=== PATIENT | male | born 1945 | race Caucasian/White ===

== ENCOUNTER 2019-03-01 16:23 | Inpatient (IN) ==
[2019-03-01] MEDS ORDERED: SODIUM CHLORIDE 0.9% 1000ML 1,000 ML IV SCH (16:45)
[2019-03-01 16:58] LABS: Basophils # (auto) 0.01 K/uL (0-0.2); Basophils % (auto) 0.2 %; Eosinophils # (auto) 0.17 K/uL (0-0.5); Eosinophils % (auto) 2.9 %; Hematocrit (blood only) 39.8 % (42-52); Hemoglobin 13.5 g/dL (14.0-18.0); Immature Granulocytes # (auto) 0.01 K/uL (0.00-0.02); Immature Granulocytes % (auto) 0.2 %; Lymphocytes # (auto) 2.13 K/uL (1.2-3.4); Lymphocytes % (auto) 36.3 %; Mean Corpuscular Hgb Conc 33.9 g/dL (32-36); Mean Corpuscular Volume 87.1 fL (80-100); Mean Platelet Volume 10.4 fL (7.4-10.4); Monocytes # (auto) 0.75 K/uL (0.11-0.59); Monocytes % (auto) 12.8 %; Neutrophils # (auto) 2.79 K/uL (1.4-6.5); Neutrophils % (auto) 47.6 %; Platelet Count 143 K/uL (130-400); RDW Coefficient of Variation 14.1 % (11.5-14.5); RDW Standard Deviation 44.4 fL (36.4-46.3); Red Blood Count 4.57 M/uL (4.7-6.1); White Blood Count 5.86 K/uL (4.8-10.8)
--- NOTE | 2019-03-01 17:04 | XRay Report ---
XR chest 1V portable CLINICAL HISTORY: dizzy COMPARISON STUDY: No previous studies for comparison. FINDINGS: The heart is the upper limits of normal in size. There are by basilar interstitial opacitie s, atelectatic versus infectious/inflammatory. There is no lobar consolidation. There are no pleural effusions. There is no overt failure.[ IMPRESSION: Basilar interstitial opacities, atelectatic versus infectious/inflammatory. No lobar cons olidation. No overt failure. Electronically signed by: Rusty Epps M.D. 03/01/2019 5:03 PM
[2019-03-01 17:11] LABS: Partial Thromboplastin Ratio 0.9; Partial Thromboplastin Time 23.9 Seconds (21.0-31.0); Prothrombin Time 10.1 Seconds (9.0-12.0)
--- NOTE | 2019-03-01 17:14 | CT Scan Report ---
CT head/brain wo con CLINICAL HISTORY: dizzy COMPARISON STUDY: No previous studies for comparison. TECHNIQUE: Axial CT of the brain is performed from the vertex to the skull base. IV contrast was not administered for this examination. A dose lowering technique was utilized adhering to the principles of ALARA. CT DOSE: 537.48 mGy.cm FINDINGS: No intra or extra-axial mass lesions are visualized. There is no CT evidence of acute cortical infarc tion. There is no evidence of midline shift. There is no acute hemorrhage. No calvarial fractures ar e visualized. There are minor white matter hypodensities likely on a small vessel basis. There is no evidence of pathologic ventricular dilatation. There is mild vertebrobasilar dolichoectasia There is no evidence of acute sinusitis IMPRESSION: No acute intracranial findings Electronically signed by: Rusty Epps M.D. 03/01/2019 5:13 PM
[2019-03-01 17:21] LABS: Alanine Aminotransferase 25 U/L (12-78); Albumin Level 3.6 gm/dl (3.4-5.0); Aspartate Aminotransferase 13 U/L (15-37); BUN Creatinine Ratio 13.8 (10-20); Blood Urea Nitrogen 15 mg/dl (7-18); Calcium 8.9 mg/dl (8.5-10.1); Carbon Dioxide 29 mmol/L (21-32); Chloride 108 mmol/L (98-107); Creatinine Clr Calc Pharmacy 71.6 ml/min; Est GFR (African American) 77.1; Est GFR (Non-African American) 66.5; Glucose 119 mg/dl (70-99); Potassium 3.9 mmol/L (3.5-5.1); Sodium 140 mmol/L (136-145)
[2019-03-01 17:26] LABS: Albumin Globulin Ratio 1.1 (0.9-2); Alkaline Phosphatase 82 U/L (45-117); Bilirubin,Total 0.9 mg/dl (0.2-1); Globulin 3.4 gm/dl (2.5-4.0); Troponin I < 0.015 ng/ml (0-0.045)
[2019-03-01] MEDS ORDERED: ASPIRIN CHEW 324 MG PO STA (17:54)
--- NOTE | 2019-03-01 19:44 | Emergency Department Note ---
Entered by Kathleen Foster acting as a scribe for History of Present Illness General Chief complaint: Stroke/CVA Symptoms Stated complaint: BLURRED VISION, LOSS OF BALANCE- REFERRED Source: patient and family Mode of arrival: ambulatory Limitations: no limitations History of Present Illness Onset (ago): day(s) (1 day at 0500) Location: head and eyes Pain Consistency: + constant Relieved By: + other ( He states that the vision problems are resolved when he looks out of just one eye. ) Exacerbated By: + movement (The patient notes that it doesnt focus right when he turns.) Associated symptoms: + other (The patient complains of loss of balance. The patient denies numbness. ); no chest pain, no shortness of breath and no weakness The patient is a 73 year old male with a history of hypertension and h yperlipidemia who presents to the ED with complaints of constant CVA symptoms that onset yesterday at 0500. He states that he developed bilateral blurry vision while he was driving yesterday and it lasted for 1 hour. The patient notes that it happened again this morning and has not stopped. He states that the vision problems are resolved when he looks out of just one eye. The patient notes that it does not focus right when he turns his head. The patient complains of loss of balance. The patient denies chest pain, shortness of breath, weakness, and numbness. No other complaints at this time. He does admit to a history of hypertension hyperlipidemia. He is from [place]. Home Medications Home Medications Medication Instructions Recorded Confirmed Type aspirin 81 mg PO QPM 03/01/19 03/01/19 History lisinopril 40 mg PO QAM 03/01/19 03/01/19 History metoprolol succinate [Toprol XL] 50 mg PO QPM 03/01/19 03/01/19 History pravastatin 40 mg PO QPM 03/01/19 03/01/19 History Allergies Allergy/AdvReac Type Severity Reaction Status Date / Time No Known Allergies Allergy Unverified 03/01/19 17:22 Past Med/Surg History Medical History HTN (hypertension) HLD (hyperlipidemia) No pertinent family history Surgical History No pertinent past surgical history Social History Preferred Language: Greek Communication Ability: Effective Hearing Ability: Normal Feels Safe at Home: Yes Smoking Status: Never smoker Review of Systems See HPI for pertinent positives & negatives. and A total of 10 systems reviewed and were otherwise negative Physical Exam Vital Signs Vital Signs - 24 hr 03/01/19 16:29 03/01/19 16:54 03/01/19 17:38 Temperature 36.6 C Temperature Source Oral Sepsis Recent Fever Within 48 Hours No Sepsis New/Unexplained Change in Mental Status No Sepsis Action Taken by Nursing No Action Required Pulse Rate - Lying 62 Pulse Rate - Sitting 70 Pulse Rate - Standing 80 Pulse Rate 59 L Pulse Rate from SpO2 Sensor Pulse Rhythm Regular Pulse Strength Normal Respiratory Rate 20 Respiratory Effort / Characteristics Non-Labored Spontaneous Respiratory Depth Normal Respiratory Pattern Regular Blood Pressure - Lying 173/72 H Blood Pressure - Sitting 164/74 H Blood Pressure- Standing 156/90 H Blood Pressure 181/84 H Blood Pressure Mean 116 Blood Pressure Position Sitting Pulse Oximetry 94 98 Oxygen Delivery Method Room Air Room Air 03/01/19 18:00 03/01/19 19:16 03/01/19 19:17 Temperature Temperature Source Sepsis Recent Fever Within 48 Hours Sepsis New/Unexplained Change in Mental Status Sepsis Action Taken by Nursing Pulse Rate - Lying Pulse Rate - Sitting Pulse Rate - Standing Pulse Rate 66 69 60 Pulse Rate from SpO2 Sensor 63 Pulse Rhythm Pulse Strength Respiratory Rate 19 18 21 Respiratory Effort / Characteristics Respiratory Depth Respiratory Pattern Blood Pressure - Lying Blood Pressure - Sitting Blood Pressure- Standing Blood Pressure 156/82 H Blood Pressure Mean 106 Blood Pressure Position Pulse Oximetry 95 Oxygen Delivery Method Room Air 03/01/19 19:30 Temperature Temperature Source Sepsis Recent Fever Within 48 Hours Sepsis New/Unexplained Change in Mental Status Sepsis Action Taken by Nursing Pulse Rate - Lying Pulse Rate - Sitting Pulse Rate - Standing Pulse Rate 64 Pulse Rate from SpO2 Sensor Pulse Rhythm Pulse Strength Respiratory Rate 24 Respiratory Effort / Characteristics Respiratory Depth Respiratory Pattern Blood Pressure - Lying Blood Pressure - Sitting Blood Pressure- Standing Blood Pressure Blood Pressure Mean Blood Pressure Position Pulse Oximetry Oxygen Delivery Method GENERAL: Sitting up in bed. Alert, well appearing, well nourished, no distress, non-toxic. EYE EXAM: Normal conjunctiva. OROPHARYNX: no exudate, no erythema, lips, buccal mucosa, and tongue normal and mucous membranes are moist NECK: supple, no nuchal rigidity, no adenopathy, non-tender LUNGS: Clear to auscultation. Normal chest wall mechanics HEART: no murmurs, S1 normal and S2 normal ABDOMEN: abdomen soft, non-tender, normo-active bowel sounds, no masses, no rebound or guarding. BACK: Back is symmetrical on inspection and there is no deformity, no midline tenderness, no CVA tenderness. SKIN: no rashes and no bruising UPPER EXTREMITIES: upper extremities are grossly normal. LOWER EXTREMITIES: No pitting edema. NEURO EXAM: Normal sensorium, cranial nerves II-XII intact, normal speech, no weakness of arms, no weakness of legs. No drift. Finger to nose intact. Gross sensation intact. Course 1637: Past medical records reviewed. The patient was evaluated in room B09. A complete history and physical examination was performed. 1800: I reviewed the patient's case with Dr. Savannah Norwood. He will evaluate the patient for further management. 1804: I reviewed the patient's case with Dr. Salazar - Neurology. 1814: I have updated the patient. Consultations Consultation #1: 1804: I reviewed the patient's case with Dr. Salazar - Neurology. Time: 18:05 Consultation #2: 1800: I reviewed the patient's case with Dr. Savannah Norwood. He will evaluate the patient for further management. Time: 18:00 Administered Medications Discontinued Medications Aspirin (Aspirin) 324 mg PO NOW STA Stop: 03/01/19 17:55 Last Admin: 03/01/19 18:06 Dose: 324 mg Documented by: [id number] Sodium Chloride (Nss 1000ml) 1,000 mls @ 999 mls/hr IV .Q1H1M CAROL Stop: 03/01/19 17:45 Last Infusion: 03/01/19 18:00 Dose: 0 mls/hr Documented by: [id number] Admin: 03/01/19 16:59 Dose: 999 mls/hr Documented by: [id number] Medical Decision Making Differential Diagnosis Differential diagnoses: Ischemic Stroke, hemorrhagic stroke, bells palsy, mass, neoplasm, migraine headache, seizure, subarachnoid hemorrhage, TIA, and transient global amnesia. Medical Records Attestation: I reviewed the patient's medical records. Home Medications Current Medication List: was personally reviewed by me Laboratory Data Attestation: I reviewed the patient's lab results. Result diagrams: 03/01/19 16:49 03/01/19 16:49 Lab Results 03/01/19 03/01/19 03/01/19 Range/Units 16:49 16:49 16:49 WBC 5.86 (4.8-10.8) K/uL RBC 4.57 L (4.7-6.1) M/uL Hgb 13.5 L (14.0-18.0) g/dL Hct 39.8 L (42-52) % MCV 87.1 (80-100) fL MCH 29.5 (25-34) pg MCHC 33.9 (32-36) g/dL RDW Std Deviation 44.4 (36.4-46.3) fL RDW Coeff of Mamadou 14.1 (11.5-14.5) % Plt Count 143 (130-400) K/uL MPV 10.4 (7.4-10.4) fL Immature Gran % (Auto) 0.2 % Neut % (Auto) 47.6 % Lymph % (Auto) 36.3 % [place] % (Auto) 12.8 % Eos % (Auto) 2.9 % Baso % (Auto) 0.2 % Immature Gran # (Auto) 0.01 (0.00-0.02) K/uL Neut # (Auto) 2.79 (1.4-6.5) K/uL Lymph # (Auto) 2.13 (1.2-3.4) K/uL [place] # (Auto) 0.75 H (0.11-0.59) K/uL Eos # (Auto) 0.17 (0-0.5) K/uL Baso # (Auto) 0.01 (0-0.2) K/uL PT 10.1 (9.0-12.0) Seconds INR 1.0 (0.9-1.1) APTT 23.9 (21.0-31.0) Seconds PTT Ratio 0.9 Sodium 140 (136-145) mmol/L Potassium 3.9 (3.5-5.1) mmol/L Chloride 108 H (98-107) mmol/L Carbon Dioxide 29 (21-32) mmol/L Anion Gap 3.0 (3-11) BUN 15 (7-18) mg/dl Creatinine 1.09 (0.6-1.4) mg/dl Est Cr Clr Drug Dosing 71.6 ml/min Est GFR ( Amer) 77.1 Est GFR (Non-Af Amer) 66.5 BUN/Creatinine Ratio 13.8 (10-20) Glucose 119 H (70-99) mg/dl POC Glucose (70-99) Calcium 8.9 (8.5-10.1) mg/dl Total Bilirubin 0.9 (0.2-1) mg/dl AST 13 L (15-37) U/L ALT 25 (12-78) U/L Alkaline Phosphatase 82 (45-117) U/L Troponin I < 0.015 (0-0.045) ng/ml Total Protein 7.0 (6.4-8.2) gm/dl Albumin 3.6 (3.4-5.0) gm/dl Globulin 3.4 (2.5-4.0) gm/dl Albumin/Globulin Ratio 1.1 (0.9-2) /08/10 Range/Units 16:51 WBC (4.8-10.8) K/uL RBC (4.7-6.1) M/uL Hgb (14.0-18.0) g/dL Hct (42-52) % MCV (80-100) fL MCH (25-34) pg MCHC (32-36) g/dL RDW Std Deviation (36.4-46.3) fL RDW Coeff of Mamadou (11.5-14.5) % Plt Count (130-400) K/uL MPV (7.4-10.4) fL Immature Gran % (Auto) % Neut % (Auto) % Lymph % (Auto) % [place] % (Auto) % Eos % (Auto) % Baso % (Auto) % Immature Gran # (Auto) (0.00-0.02) K/uL Neut # (Auto) (1.4-6.5) K/uL Lymph # (Auto) (1.2-3.4) K/uL [place] # (Auto) (0.11-0.59) K/uL Eos # (Auto) (0-0.5) K/uL Baso # (Auto) (0-0.2) K/uL PT (9.0-12.0) Seconds INR (0.9-1.1) APTT (21.0-31.0) Seconds PTT Ratio Sodium (136-145) mmol/L Potassium (3.5-5.1) mmol/L Chloride (98-107) mmol/L Carbon Dioxide (21-32) mmol/L Anion Gap (3-11) BUN (7-18) mg/dl Creatinine (0.6-1.4) mg/dl Est Cr Clr Drug Dosing ml/min Est GFR ( Amer) Est GFR (Non-Af Amer) BUN/Creatinine Ratio (10-20) Glucose (70-99) mg/dl POC Glucose 124 H (70-99) Calcium (8.5-10.1) mg/dl Total Bilirubin (0.2-1) mg/dl AST (15-37) U/L ALT (12-78) U/L Alkaline Phosphatase (45-117) U/L Troponin I (0-0.045) ng/ml Total Protein (6.4-8.2) gm/dl Albumin (3.4-5.0) gm/dl Globulin (2.5-4.0) gm/dl Albumin/Globulin Ratio (0.9-2) Imaging Data Radiologist's Impression: Radiology results as stated below per my review and the radiologist's interpretation: CT head/brain wo con CLINICAL HISTORY: dizzy COMPARISON STUDY: No previous studies for comparison. TECHNIQUE: Axial CT of the brain is performed from the vertex to the skull base. IV contrast was not administered for this examination. A dose lowering technique was utilized adhering to the principles of ALARA. CT DOSE: 537.48 mGy.cm FINDINGS: No intra or extra-axial mass lesions are visualized. There is no CT evidence of acute cortical infarction. There is no evidence of midline shift. There is no acute hemorrhage. No calvarial fractures are visualized. There are minor white matter hypodensities likely on a small vessel basis. There is no evidence of pathologic ventricular dilatation. There is mild vertebrobasilar dolichoectasia There is no evidence of acute sinusitis IMPRESSION: No acute intracranial findings Electronically signed by: Rusty Epps M.D. 03/01/2019 5:13 PM Dictated: 03/01/191710 Transcribed: 03/01/191710 XR chest 1V portable CLINICAL HISTORY: dizzy COMPARISON STUDY: No previous studies for comparison. FINDINGS: The heart is the upper limits of normal in size. There are by basilar interstitial opacities, atelectatic versus infectious/inflammatory. There is no lobar consolidation. There are no pleural effusions. There is no overt failure.[ IMPRESSION: Basilar interstitial opacities, atelectatic versus infectious/inf lammatory. No lobar consolidation. No overt failure. Electronically signed by: Rusty Epps M.D. 03/01/2019 5:03 PM Dictated: 03/01/191701 Transcribed: 03/01/191701 ECG Data Attestation: I personally reviewed and interpreted this ECG as follows: Indication: other (CVA symptoms) Rate (beats per minute): 62 Rhythm: sinus rhythm Findings: + other (normal axis, sinus arrhythmia) and + 1st degree AV block; no PVC Blood Pressure Blood Pressure Findings: Elevated blood pressure Blood Pressure Disposition: further management by hospitalist MDM Narrative Patient is a 73-year-old male with a past medical history of hypertension hyperlipidemia presents the ER for blurry vision intermittently yesterday and constantly today associated with trouble ambulating. He has no other complaints at this time. He is completely neurologically intact. He is hypertensive. Patient was given aspirin fluids while in the ER. Labs were obtained and showed no significant leukocytosis or anemia. INR was unremarkable. BMP along with LFTs bilirubin and troponin was negative. CT of the head was negative. Patient was discussed with unassigned neurology who recommended admission and a stroke work-up as this could be a thalamic/occipital infarct. Patient was updated bedside and discussed with Dr. Nuñez. Impression & Plan Blurred vision, Ambulatory dysfunction Discharge Plan Visit Data Chief Complaint: Stroke/CVA Symptoms Stated Complaint: BLURRED VISION, LOSS OF BALANCE- REFERRED ED Provider: Darwin Sinha Discharge Problem: Blurred vision, Ambulatory dysfunction Patient Disposition: Home - Self-Care Forms Stand Alone Forms: My [facility], Important Visit Information Prescriptions Prescriptions: No Action pravastatin 40 mg Tablet 40 mg PO QPM RF: 0 metoprolol succinate [Toprol XL] 50 mg Tablet Extended Release 24 Hr 50 mg PO QPM RF: 0 aspirin 81 mg Tablet,Delayed Release (Dr/Ec) 81 mg PO QPM RF: 0 lisinopril 40 mg Tablet 40 mg PO QAM RF: 0 Referrals Referrals: DAFNE HENDERSON [Other] The scribe's documentation has been prepared under my direction and personally reviewed by me in its entirety. I confirm that the note above accurately reflects all work, treatment, procedures, and medical decision making performed by me.
--- NOTE | 2019-03-01 20:04 | History & Physical Report ---
Date of Service March 01, 2019 Assessment & Plan (1) Suspected cerebrovascular accident (CVA): Suspected posterior fossa CVA with ataxia and perceived vision abnormalities. Continue aspirin therapy. Obtain brain MRI/MRA. Consult neurology. Statin therapy. Fasting lipid profile. Neurochecks tonight. Telemetry. Cardiac echo Present on Admission?: Yes (2) HTN (hypertension): Treated with lisinopril and metoprolol Present on Admission?: Yes (3) HLD (hyperlipidemia): Treated with pravastatin. Obtain fasting lipid profile Dispositionto be determined History of Present Illness Chief Complaint: Patient complained of a sensation of imbalance and abnormal vision while driving yesterday. The symptoms persisted today and he feels as if he needs to hang onto something in order to walk steadily although he has no lateralizing signs or muscle weakness. He states his vision does not seem to be right when he looks to the right more so than to the left. He denies diplopia. Primary Care Provider: DAFNE HENDERSON See chief complaint. The patient's symptoms began yesterday. He has a sensation of ataxia and abnormal vision although he denies amaurosis fugax or diplopia. Head CT scan is unremarkable. He continues to have some sensation of abnormalities neurologically primarily ataxic gait which is mild since he is able to walk unassisted but feels as if he should have his hand on something for steadiness. He also states his vision is not right but he denies amaurosis fugax or diplopia. He has no visual field defects to confrontation. Aspirin has been administered in the ED. Head CT scan is negative. Brain MRI/MRA will be obtained and neurological consultation will be requested. Allergies Allergy/AdvReac Type Severity Reaction Status Date / Time No Known Allergies Allergy Unverified 03/01/19 17:22 Home Medications Home Medications Medication Instructions Recorded Confirmed Type aspirin 81 mg PO QPM 03/01/19 03/01/19 History lisinopril 40 mg PO QAM 03/01/19 03/01/19 History metoprolol succinate [Toprol XL] 50 mg PO QPM 03/01/19 03/01/19 History pravastatin 40 mg PO QPM 03/01/19 03/01/19 History Past Med/Surg History Medical History Suspected cerebrovascular accident (CVA) (Acute) HTN (hypertension) HLD (hyperlipidemia) No pertinent family history Surgical History History of vasectomy No pertinent past surgical history Family History Other Heart disease Hypertension Social History Preferred Language: Mozambican Communication Ability: Effective Hearing Ability: Normal Feels Safe at Home: Yes Smoking Status: Never smoker Hx Alcohol Use: No Hx Substance Use: No Review of Systems Review of Systems: All systems reviewed & are unremarkable except as noted in HPI & below Neurologic: + gait abnormality and + unsteadiness; no localized weakness, no paralysis, no lack of coordination, no radiating pain, no abnormal movements, no seizure-like activity, no syncope, no headache(s), no abnormal speech, no confusion and no memory loss Physical Exam Constitutional: WD/WN, vitals as above Eyes: PERRL, conjunctivae normal, anicteric sclerae ENMT: external ear and nose normal, oropharynx normal Neck: trachea midline, no thyromegaly Respiratory: normal respiratory effort, lungs clear to auscultation Cardiovascular: RRR, no murmur, no edema Gastrointestinal (Abdomen): normal bowel sounds, soft, nontender, no hepatosplenomegaly Musculoskeletal: no cyanosis or clubbing, extremities motor strength 5/5 Skin: no rashes, warm and dry Neurologic: PERRL, EOMI, accommodation nl, no face palsy, no dysarthria CN' s II-XI intact bilaterally, deep tendon reflexes 2+ bilaterally and moves all extremities; no focal motor deficits Mildly ataxic gait. No focal visual field defects to confrontation. Results & Data Vital Signs (Past 12 Hours) Vital Signs Temp Pulse Resp BP Pulse Ox 03/01/19 19:30 64 24 03/01/19 19:17 60 21 156/82 H 95 03/01/19 19:16 69 18 03/01/19 18:00 66 19 03/01/19 16:54 98 03/01/19 16:29 36.6 C 59 L 20 181/84 H 94 Laboratory Results 03/01/19 16:49 03/01/19 16:49
[2019-03-01] MEDS ORDERED: ACETAMINOPHEN 325 MG TAB PO PRN (20:48)
[2019-03-01] MEDS ORDERED: PHARMACIST DISCHARGE MED REC CONSULT PRN (20:48)
[2019-03-01] MEDS ORDERED: ONDANSETRON INJ 2 MG/ML 2 ML VIAL IV PRN (20:48)
[2019-03-01] MEDS ORDERED: ALUMINUM/MAGNESIUM SUSP 30 ML UDC PO PRN (20:48)
--- NOTE | 2019-03-01 22:01 | Magnetic Resonance Report ---
MR ANGIOGRAPHY OF THE PILOT STATION OF [place] NO CONTRAST CLINICAL HISTORY: Suspected posterior fossa CVA VISUAL DIFFICULTIES BALANCE DIFFICULTIES COMPARISON STUDY: None. A 3-D [id number] MR angiographic sequence of the [place] of [place] was performed. Both the source and projection images were reviewed. There are no lesion suspicious for aneurysm. Normal flow within the posterior cerebral arteries is no t visualized. No signal is visualized within the left vertebral artery. IMPRESSION: 1. No signal visualized within the left vertebral artery 2. Absence of normal visualized flow within the posterior cerebral arteries. Electronically signed by: Rusty Epps M.D. 03/01/2019 10:00 PM
[2019-03-01] MEDS ORDERED: GADOBUTROL 65ML VIAL IV PRN (22:15)
--- NOTE | 2019-03-01 22:23 | Magnetic Resonance Report ---
MRI OF THE BRAIN WITHOUT AND WITH IV CONTRAST CLINICAL HISTORY: Suspected posterior fossa CVA VISUAL AND BALANCE DIFFICULTY. COMPARISON STUDY: Head CT dated 03/01/2019 TECHNIQUE: MRI of the brain was performed from the vertex to the skull base utilizing various T1 and T2 weighted sequences. Following the IV administration of 5.5 mL of Gadavist contrast, additional enh anced images were obtained. FINDINGS: Sagittal T1, axial diffusion, proton density and T2 weighted axial, coronal FLAIR, and pre and post a xial T1-weighted images were acquired. These were supplemented with post gadolinium coronal T1 weight ed images. No intra or extra-axial mass lesions are visualized. Axial diffusion-weighted images reveal no evidence of acute or subacute infarction. There is no evidence of ventricular dilatation. Proton density T2-weighted and FLAIR images reveal scattered foci of increased T2 signal within the w danelle matter, likely on a small vessel basis. There are no abnormal flow voids. There is no evidence of pathologic enhancement. There is vertebrobasilar dolichoectasia. There are small maxillary sinus retention cyst. There is a left mastoid effusion IMPRESSION: 1. No evidence of intracranial mass 2. No evidence of acute or subacute infarction 3. Left mastoid effusion 4. Vertebrobasilar dolichoectasia Electronically signed by: Rusty Epps M.D. 03/01/2019 10:22 PM
[2019-03-01] MEDS: SODIUM CHLORIDE 0.45 % 1,000 ML IV SCH (22:31)
--- NOTE | 2019-03-01 22:35 | Magnetic Resonance Report ---
NECK MRA HISTORY: Balance and visual difficulties Suspected posterior fossa CVA TECHNIQUE: [id number] and gadolinium-enhanced MRA of the neck was performed both before and after the intravenous administration of contrast. All measurements were calculated based on NASCET criteri a. Patient received 9.5 cc of intravenous Gadavist COMPARISON STUDY: MR angiography of the head no contrast dated 03/01/2019 FINDINGS: The aortic arch and proximal great vessels are widely patent. There is no significant sten osis, occlusion, or dissection identified within the bilateral common carotid, internal carotid, or v ertebral arteries. There is a dominant large right vertebral artery. The left vertebral artery is dim inutive. Flow is visualized within the posterior cerebral arteries. The lack of significant flow visualized on the prior noncontrast MR angiogram, is felt to be secondary to technical factors related to the 3-D [id number] acquisition technique IMPRESSION: 1. Dominant right vertebral artery, and diminutive left vertebral artery 2. No evidence of carotid artery stenosis 3. Flow is visualized within the posterior cerebral arteries Electronically signed by: Rusty Epps M.D. 03/01/2019 10:34 PM
[2019-03-01] MEDS: PRAVASTATIN SOD 40 MG TAB PO SCH (22:36)
[2019-03-01] MEDS: METOPROLOL SUCC 50MG EXT REL TAB PO SCH (22:36)
[2019-03-02 06:03] LABS: Estimated Average Glucose 128 mg/dl
[2019-03-02 06:14] LABS: Basophils # (auto) 0.02 K/uL (0-0.2); Basophils % (auto) 0.3 %; Eosinophils # (auto) 0.23 K/uL (0-0.5); Eosinophils % (auto) 3.5 %; Hematocrit (blood only) 38.2 % (42-52); Hemoglobin 13.3 g/dL (14.0-18.0); Immature Granulocytes # (auto) 0.01 K/uL (0.00-0.02); Immature Granulocytes % (auto) 0.2 %; Lymphocytes # (auto) 2.16 K/uL (1.2-3.4); Lymphocytes % (auto) 33.2 %; Mean Corpuscular Hgb Conc 34.8 g/dL (32-36); Mean Corpuscular Volume 85.8 fL (80-100); Mean Platelet Volume 10.7 fL (7.4-10.4); Monocytes # (auto) 0.59 K/uL (0.11-0.59); Monocytes % (auto) 9.1 %; Neutrophils # (auto) 3.49 K/uL (1.4-6.5); Neutrophils % (auto) 53.7 %; Platelet Count 136 K/uL (130-400); RDW Coefficient of Variation 13.9 % (11.5-14.5); RDW Standard Deviation 43.6 fL (36.4-46.3); Red Blood Count 4.45 M/uL (4.7-6.1)
[2019-03-02 06:50] LABS: BUN Creatinine Ratio 12.4 (10-20); Calcium 8.6 mg/dl (8.5-10.1); Creatinine Clr Calc Pharmacy 75.6 ml/min; Est GFR (African American) 82.6; Est GFR (Non-African American) 71.2; Potassium 4.2 mmol/L (3.5-5.1)
[2019-03-02] MEDS: LISINOPRIL 40 MG TAB PO SCH (08:24)
[2019-03-02] MEDS ORDERED: ASPIRIN 81 MG ECTAB PO SCH ×2 (09:00→21:00)
--- NOTE | 2019-03-02 10:50 | Communication Note ---
Date of Service: March 02, 2019 I seen Mr. Armstrong today, reviewed his imaging studies, his laboratory studies and perform examination. He currently is absolutely asymptomatic having had no horizontal diplopia since 9:00 last night The history however suggests intermittent brainstem ischemia possibly at the junction between the елена and midbrain but otherwise non-localizable as his im aging studies show no evidence of ischemia and all that we see is a somewhat tortuous basilar artery that is probably of no clinical significance I suspect these are small vessel ischemic events and I am suggesting that we add Plavix to his aspirin taking a single baby aspirin anyway I would hold him until about 4:00 this afternoon to be certain he does not have any recurrent ischemic events as a history suggests he had daily events and Monday the latter of increased duration If he remains symptom-free he could be discharged and drive home with his but I suggested he himself do very little driving and certainly none if he has episodes of diplopia He will need to be seen by his primary care physician in [place] when he returns and probably by neurology and perhaps even cardiology to assess him for potential cardiogenic sources of emboli or paroxysmal atrial fibrillation although frankly I doubt both of these entities Robin Salazar MD
[2019-03-02] MEDS ORDERED: CLOPIDOGREL BISULFATE 75 MG TAB PO ONE (11:00)
[2019-03-02] MEDS ORDERED: OPTIRAY 320 125ml IV PRN (11:32)
--- NOTE | 2019-03-02 11:53 | CT Scan Report ---
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 A 3-D evja-ac-jfiuyh MR angiographic sequence of the [place] was performed. Both the source and projection images were reviewed. There are no lesion suspicious for aneurysm. Normal flow within the posterior cerebral arteries is no t visualized. No signal is visualized within the left vertebral artery. IMPRESSION: 1. No signal visualized within the left vertebral artery 2. Absence of normal visualized flow within the posterior cerebral arteries. Electronically signed by: Trip Morrow M.D. 03/02/2019 11:51 AM ?BOWLING ALLEY MECHANIC stenosis or thrombus TECHNIQUE: Multiaxial CT angiography of the head was performed IV contrast: 100 cc Maximum i ntensity projection images were also obtained. A dose lowering technique was utilized adhering to th e principles of ALARA. COMPARISON: MRA 03/01/2019 FINDINGS: There is no mass, hematoma, midline shift, or acute infarct. Visualized anterior and middle intracranial vasculature is unremarkable. There is a dominant right vertebral vessel combined with basilar area the left vertebral artery is sm all presumably on a congenital basis. Posterior cerebral arteries are visualized and air-filled primarily via the patent bilateral posterio r communicating vessels. The posterior cerebral arteries are rather small in overall caliber. IMPRESSION: 1. Normal anterior middle cerebral arterial vasculature. 2. Posterior cerebral vasculature demonstrates small caliber vessels bilaterally with supply originat ing from the posterior communicating vessels. 3. Small caliber left vertebral artery presumably on a congenital basis. 4. No evidence for filling defect, stenosis, or aneurysm. The above report was generated using voice recognition software. It may contain grammatical, syntax or spelling errors.
--- NOTE | 2019-03-02 11:56 | CT Scan Report ---
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 Maximum intensity projection images were also obtain ed. A dose lowering technique was utilized adhering to the principles of ALARA. COMPARISON STUDY: MRA 03/01/2019 FINDINGS: The aortic arch and proximal great vessels are widely patent. There is no significant sten osis, occlusion, or dissection identified within the bilateral common carotid, internal carotid, or v ertebral arteries. The left vertebral vessel is very small presumably on a congenital basis. No evidence for aneurysm or dissection. Minimal plaque formation at the carotid bifurcations with no significant stenotic process. IMPRESSION: No significant stenosis, occlusion, or dissection identified within the carotid or vertebral arteries . The left vertebral artery is very small in terms of diameter presumably on a congenital basis. The above report was generated using voice recognition software. It may contain grammatical, syntax or spelling errors. Electronically signed by: Trip Morrow M.D. 03/02/2019 11:54 AM
--- NOTE | 2019-03-02 12:42 | Consultation Report ---
DATE OF CONSULTATION: 03/02/[address] Nuñez. HISTORY OF PRESENT ILLNESS: Vanessa is 73 years old, is right handed and hails from [place]. He is here to attend the [employer] graduation and was in his usual state of health up until when he had a transient period of horizontal diplopia worse slightly to the right lateral gaze, but present bilaterally as well and resolved with eye closure. He had a sense of disequilibrium at that time. This lasted several minutes. He then proceeded to start driving to [facility] for the graduation and en route had another more protracted episode of diplopia of identical type lasting several hours and clearing actually last night at about 9:00. Because of the persistence of the deficits, he presented to our Emergency Room. He had no other complaints. He had no real visual loss per se. He had a sensation of ataxia, but did not really fall to either side. A head CT was normal. I was contacted by the Emergency Room and I have suggested that he be admitted for observation assessment acting on the assumption, this was a vertebrobasilar TIA. Subsequently, he was given an aspirin which he was taking anyway. Brain MRI/MRA, etc., so far have revealed no evidence for infarction or significant stenosis and he has been asymptomatic since last night. All this occurs in the setting of preexisting hypertension, treated with lisinopril and metoprolol and dyslipidemia on pravastatin. HOME MEDICATIONS: Include 81 mg of aspirin, 40 of lisinopril, 50 of metoprolol and 40 of pravastatin. PAST MEDICAL HISTORY: Otherwise, unremarkable. PAST SURGICAL HISTORY: Reveals a vasectomy, but no other issues. FAMILY HISTORY: Positive for heart disease and hypertension. SOCIAL HISTORY: Reveals him to be . He has never been a smoker. He does not use ethanol. REVIEW OF SYSTEMS: Reveals no history of migraine headaches. No prior history of diplopia, ptosis or other visual issues. No tinnitus, hearing loss, or vertigo. No problems with speech or swallowing, only the mild ataxia when the double vision was occurring without falls, unilateral weakness or numbness and no other issues referable to head, eyes, ears, nose and throat, cardiovascular, pulmonary, gastrointestinal, genitourinary, musculoskeletal or dermatologic systems. PHYSICAL EXAMINATION: General examination performed by Dr. Nuñez last night. Record is unremarkable. There were no cardiac murmurs. The carotids were free of bruits and his neurologic examination was actually normal as it is today. He is awake, alert, oriented in 3 spheres. Eye movements are quite normal with no abnormal ocular oscillations or overt nystagmus. Head movements did not induce any vertigo. He has no limitation of upward or downward gaze. There is no ptosis. Pupils are equal, round and reactive to light. Gross visual acuity is normal and no visual field cuts. Facial motility and strength, facial sensation is normal. Speech is clear. There is no drift or pronation sign, tremor, tics or choreiform activity. Reflexes are all present and equal. Toes are downgoing. No Rebecca signs are seen. Sensory examination is grossly intact to vibration, light touch, and temperature. The history still is very suggestive of intermittent brainstem ischemia, possibly due to a pontine perforating vessel. There is some vertebrobasilar dolichoectasia on imaging studies and it is possible that this may be related to some degree. There is also some sinus retention cyst and mastoid effusion, but there is no evidence for intracranial mass. There is no subacute or acute infarction and imaging studies have been unremarkable otherwise. His EKGs showed no atrial fibrillation. Cervical MRIs have been unremarkable. ASSESSMENT AND PLAN: At this point, again I suspect this is intermittent ischemia of a small blood vessel supplying the brain stem, possibly at the pontine midbrain junction, although localization based purely on history and these affairs is always marginal. We see nothing clinically or on MRI to suggest a fixed deficit. He was on aspirin. I would suggest in this setting that he be started on Plavix, take it with his aspirin and that he be held here for another 4-6 hours until 4:00 p.m. and if he is asymptomatic, then permit him to be discharged. In terms of driving home, I would suggest he do this minimally and certainly not if he has any further episodes of double vision and he will need to get in touch with his primary care physician for followup once he returns to the [facility]. I have initiated the orders for Plavix and I have left a note on the chart for his current attending physician outlining my thoughts. Since the above note was dictated Dr Gonzalez has ordered a cta of the cervical and intracranial vessels and results indicate a hypoplastic left vertebral, and diminuitive posterior circulation with no clear stenoses bt with posterior cerebral arteries supplied vis the posterior communicating vessels and the anterior circulation This is likley developmental but might place the perfusion of the anterior portions of his basilar system at risk during times of hyptension I discussed the case and at this time we will load him with plavix and observe until tomorrow am if he is stable then he shoulld follow up with his pcp and continue asa and plavis for a minimum of 21 days and then swithch to plavix alone This policy however may not be favored by his pcp or by a neurologist in his home town and is certainly not "cast in stome" I will check on him tomorrow and if stable wagner clear him for discharge Robin Salazar [facility]
[2019-03-02] MEDS ORDERED: CLOPIDOGREL BISULFATE 75 MG TAB PO STA (14:16)
[2019-03-02] MEDS: SODIUM CHLORIDE 0.45 % 1,000 ML IV SCH (18:04)
[2019-03-02] MEDS: METOPROLOL SUCC 50MG EXT REL TAB PO SCH (19:58)
[2019-03-02] MEDS: PRAVASTATIN SOD 40 MG TAB PO SCH (19:58)
--- NOTE | 2019-03-02 21:44 | Hospitalist Progress Note ---
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 MRA and CTA of neck show congental vertebral artery anomaly and poor CONVEYOR [employer] OFF[employer]AR[employer] blood flow. Fortunately he did NOT have a MRI. Case d/w Dr Salazar. Plan - plavix load of 600mg x 1 today followed by plavix 75mg daily. statin therapy. will he need vascular surgery evaluation in future? 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 - as seen on MRA and CTA see above in "vertebral-basilar insufficiency" (3) TIA (transient ischemic attack): plavix and aspirin for secondary prevention statin therapy echo w/o source of thrombus no a.fib on tele (4) HTN (hypertension): continue home meds and adjust as needed (5) HLD (hyperlipidemia): statin therapy (6) DVT prophylaxis: ambulate/SCDs if he stays beyond tomorrow then add lovenox 40mg daily updated at bedside Subjective patient without any further episodes or symptoms of ataxia, visual disturbance etc he denies dizziness, visual field cuts, vertigo he had multiple episodes since of this week prior to has never had these symptoms denies arm claudication or presyncopal symptoms with using his arms Review of Systems Respiratory: no cough and no dyspnea Cardiovascular: no chest pain Gastrointestinal: no abdominal pain Physical Exam Constitutional: well developed and well nourished; no acute distress Eyes: visual ashley full by direct confrontation ENMT: external ear and nose normal, oropharynx normal Respiratory: normal respiratory effort, lungs clear to auscultation Cardiovascular: RRR, no murmur, no edema Heart Sounds: normal S1 and normal S2 Vessels: posterior tibial pulses present and dorsalis pedis pulses present; no JVD Gastrointestinal (Abdomen): normal bowel sounds, soft, nontender, no hepatosplenomegaly Neurologic: moves all extremities; no focal motor deficits finger/nose/finger maneuver w/o dysmetria Psychiatric: A+Ox3, euthymic affect Results & Data Vital Signs (Past 12 Hours) Vital Signs Temp Pulse Resp BP Pulse Ox 03/02/19 18:56 36.9 C 60 18 148/64 H 94 03/02/19 17:58 160/73 H 03/02/19 15:10 93 03/02/19 15:07 36.5 C 57 L 18 170/78 H 94 03/02/19 11:50 36.9 C 54 L 16 161/72 H 92 Laboratory Results Laboratory Results - last 24 hr 03/01/19 03/02/19 03/02/19 16:49 05:47 05:47 WBC 6.50 RBC 4.45 L Hgb 13.3 L Hct 38.2 L MCV 85.8 MCH 29.9 MCHC 34.8 RDW Std Deviation 43.6 RDW Coeff of Mamadou 13.9 Plt Count 136 MPV 10.7 H Immature Gran % (Auto) 0.2 Neut % (Auto) 53.7 Lymph % (Auto) 33.2 [place] % (Auto) 9.1 Eos % (Auto) 3.5 Baso % (Auto) 0.3 Immature Gran # (Auto) 0.01 Neut # (Auto) 3.49 Lymph # (Auto) 2.16 [place] # (Auto) 0.59 Eos # (Auto) 0.23 Baso # (Auto) 0.02 Sodium 142 Potassium 4.2 Chloride 112 H Carbon Dioxide 27 Anion Gap 3.0 BUN 13 Creatinine 1.03 Est Cr Clr Drug Dosing 75.6 Est GFR ( Amer) 82.6 Est GFR (Non-Af Amer) 71.2 BUN/Creatinine Ratio 12.4 Glucose 100 H Estimat Average Glucose 128 Hemoglobin A1c 6.1 H Calcium 8.6 Triglycerides 188 H Cholesterol 108 LDL Cholesterol, Calc 39 VLDL Cholesterol, Calc 38 HDL Cholesterol 31 Cholesterol/HDL Ratio 4 Diagnostic Findings CTA neck - IMPRESSION: No significant stenosis, occlusion, or dissection identified within the carotid or vertebral arteries. The left vertebral artery is very small in terms of diameter presumably on a congenital basis. CTA head - IMPRESSION: 1. No signal visualized within the left vertebral artery 2. Absence of normal visualized flow within the posterior cerebral arteries. (1) HTN (hypertension) Hypertension type: essential hypertension Qualified Code(s): I10 - Essential (primary) hypertension (2) HLD (hyperlipidemia) Hyperlipidemia type: mixed hyperlipidemia Qualified Code(s): E78.2 - Mixed hyperlipidemia
[2019-03-03 07:16] LABS: BUN Creatinine Ratio 14.9 (10-20); Calcium 8.9 mg/dl (8.5-10.1); Creatinine Clr Calc Pharmacy 78.7 ml/min; Est GFR (African American) 87.7; Est GFR (Non-African American) 75.6
[2019-03-03] MEDS: LISINOPRIL 40 MG TAB PO SCH (07:50)
[2019-03-03] MEDS ORDERED: CLOPIDOGREL BISULFATE 75 MG TAB PO SCH ×2 (09:00→13:15)
--- NOTE | 2019-03-03 10:29 | Communication Note ---
Date of ServicI seen Mr. Armstrong today in the company of his , reviewed the CTA studies that were done yesterday after I left the hospital and agree that he probably has a long-standing underdevelopment of his posterior circulation with a hypoplastic left vertebral, a diminutive flow through the basilar system and predominant perfusion of his posterior cerebral arteries from the anterior circulation via the posterior communicating branches What this all means in terms of his presumptive rostral brainstem TIAs is unclear but the tip of his basilar artery may in a sense to be a "watershed" zone and subject to mild hypotensive events We really have no documentation however of significant hypotension here in the hospital and he does have significant risk factors for small vessel disease making me suspect that the 2 events he had were due to localized disease and paramedian manager zone branches originating from the top of the basilar artery The issue to some degree his academic. He is currently asymptomatic. His examination is normal. His MRI shows no evidence for completed ischemic event in the area of question and really does not reveal much in way of significant small vessel disease. At this point I would recommend he be discharged on a combination of Plavix and aspirin for the next 21 days and then aspirin stopped and Plavix continued He has been loaded with oral Plavix as per my suggestion to Dr. Gonzalez yesterday he should then be placed on maintenance Plavix at discharge So we need to make copies of his medical records, places imaging studies on a di sc and he will obviously need to review all this with his primary care physician and perhaps a neurologist who sees him in consultation his home area. That individual may have a quite different policy regarding the antiplatelet agents and may also elect to perform an anti-acetylcholine receptor antibody just to exclude the remote possibility that the episodic diplopia was an early manifestation of emerging myasthenia gravis I see no need in obtaining the antibody level here as the result will be delayed and may never get successfully transferred to his primary care group in [place] Robin Salazar MD
[2019-03-03] MEDS ORDERED: CLOPIDOGREL BISULFATE 75 MG TAB PO ONE (12:56)
[2019-03-03] MEDS ORDERED: STROKE PATIENT DISCHARGE STA (13:02)
--- NOTE | 2019-03-03 14:09 | Pharmacy Report ---
Pharmacist Stroke Counseling - Date of Service March 03, 2019 - Scope: Pharmacy has been consulted to provide medication discharge counseling for this patient admitted with transient ischemic attack as per the Pharmacist Discharge Counseling for Stroke Patients Protocol. - Medications on Discharge: Home Medications Medication Instructions Recorded Confirmed aspirin 81 mg PO QPM 03/01/19 03/01/19 lisinopril 40 mg PO QAM 03/01/19 03/01/19 metoprolol succinate [Toprol XL] 50 mg PO QPM 03/01/19 03/01/19 pravastatin 40 mg PO QPM 03/01/19 03/01/19 New Rx's Medication Instructions Recorded clopidogrel [Plavix] 75 mg PO DAILY #30 tab 03/03/19 - Action: The above medications, specifically ones for stroke treatment/prophylaxis, have been reviewed in detail with the patient and/or patient quality audit representative(s) prior to discharge. This includes indication, common adverse reactions, drug interactions, and medication administration. Medication counseling has been employed using the teach-back method to ensure understanding. - Outcome: The patient and/or patient quality audit representative(s) have demonstrated understanding of the medications. Please note, they are aware that the pharmacist will call them within 72 hours post-discharge to confirm that the appropriate medications are being taken and answer any further medication related questions the patient might have at that time. Contact information Individual to be contacted: Patient (Vanessa) or Pushpa Relationship to patient (if applicable): self / Phone number: [phone] Best time to call: after 9am Thank you for allowing pharmacy to be involved in the care of this patient. Please call [phone] with any additional questions
--- NOTE | 2019-03-03 21:47 | Discharge Summary ---
Date of Service date of admission - March 01, 2019 date of discharge - March 03, 2019 Admission HPI Per Admitting Provider Vanessa is a 73 year old male with history of HTN who is right handed and hails from [place]. He is here to attend the [employer] graduation and was in his usual state of health up until when he had a transient period of horizontal diplopia worse slightly to the right lateral gaze, but present bilaterally as well and resolved with eye closure. He had a sense of disequilibrium at that time. This lasted several minutes. He then proceeded to start driving to [facility] for the graduation and en route had another more protracted episode of diplopia of identical type lasting several hours and clearing actually last night at about 9:00. Because of the persistence of the deficits, he presented to our Emergency Room. He had no other complaints. He had no real visual loss per se. He had a sensation of ataxia, but did not really fall to either side. A head CT was normal. Principal Diagnosis TIA / vertebral-basilar insufficiency Discharge Exam Constitutional well developed and well nourished; no acute distress Eyes PERRL visual ashley full by direct confrontation ENMT external ear and nose normal, oropharynx normal Respiratory normal respiratory effort, lungs clear to auscultation Cardiovascular RRR, no murmur, no edema Heart Sounds: normal S1 and normal S2 Vessels: posterior tibial pulses present and dorsalis pedis pulses present; no JVD Gastrointestinal (Abdomen) normal bowel sounds, soft, nontender, no hepatosplenomegaly Neurologic moves all extremities; no focal motor deficits Speech / Cognition: normal speech Motor/Sensory: no pronator drift Gait: no ataxic gait Coordination: normal [id number] test Psychiatric A+Ox3, euthymic affect Discharge Data Allergies Allergy/AdvReac Type Severity Reaction Status Date / Time No Known Allergies Allergy Unverified 03/01/19 17:22 Consultations neurology - Robin Salazar MD PT, OT, speech therapy Ordered Studies 1. CT head - FINDINGS: No intra or extra-axial mass lesions are visualized. There is no CT evidence of acute cortical infarction. There is no evidence of midline shift. There is no acute hemorrhage. No calvarial fractures are visualized. There are minor white matter hypodensities likely on a small vessel basis. There is no evidence of pathologic ventricular dilatation. There is mild vertebrobasilar dolichoectasia There is no evidence of acute sinusitis IMPRESSION: No acute intracranial findings 2. MRA head - IMPRESSION: 1. No signal visualized within the left vertebral artery 2. Absence of normal visualized flow within the posterior cerebral arteries 3. MRA neck - IMPRESSION: 1. Dominant right vertebral artery, and diminutive left vertebral artery 2. No evidence of carotid artery stenosis 3. Flow is visualized within the posterior cerebral arteries 4. CTA neck - IMPRESSION: No significant stenosis, occlusion, or dissection identified within the carotid or vertebral arteries. The left vertebral artery is very small in terms of diameter presumably on a congenital basis. 5. CTA head - IMPRESSION: 1. Normal anterior middle cerebral arterial vasculature. 2. Posterior cerebral vasculature demonstrates small caliber vessels bilaterally with supply originating from the posterior communicating vessels. 3. Small caliber left vertebral artery presumably on a congenital basis. 4. No evidence for filling defect, stenosis, or aneurysm. 6. echocardiogram - * EF 50-55% * no PFO * no thrombus * mild LVH * mild pulmonary HTN 7. MRI brain - IMPRESSION: 1. No evidence of intracranial mass 2. No evidence of acute or subacute infarction 3. Left mastoid effusion 4. Vertebrobasilar dolichoectasia Hospital Course (1) Vertebral basilar insufficiency: His TIA symptoms were all consistent with a posterior circulation TIA. MRA & CTA of the head/neck showed a congenitally small left vertebral artery and poor [employer] blood flow. See reports section. Fortunately he did NOT have a stroke on MRI brain. The constellation of findings on imaging were thus due to vertebral-basilar insufficiency. He was seen in consult by Dr Robin Salazar of [facility] who recommended the following - 1. addition of plavix to aspirin 2. taking aspirin and plavix concurrently for 21 days 3. after 21 days discontinuation of the aspirin and remaining on plavix monotherapy 4. continued use of statin therapy 5. follow-up with neurology upon return to [place] 6. avoidance of dehydration states and hypotension The patient was given copies of all imaging studies prior to his discharge. Over his near-48 hour stay he had no additional neurological symptoms/episodes and exam remained normal. 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 see above in "vertebral-basilar insufficiency". (3) TIA (transient ischemic attack): Posterior circulation TIA. The patient will take plavix and aspirin for secondary prevention for 21 days, then stop the aspirin and remain on plavix after that. He will continue on statin therapy with pravastatin. LDL was 39 on lipid profile. Echocardiogram did not show a source of thrombus. No a.fib was identified on monitor. He was advised to establish care with a neurologist upon return to [place]. (4) HTN (hypertension): Blood pressures were mild to moderately elevated during his stay. He was continued on his usual regimen of lisinopril and metoprolol xl. Titrations were NOT performed due to concern of causing relative hypotension. We recommended that he check his BP at home and report these values to his PCP. (5) HLD (hyperlipidemia): Continue statin therapy. Total Time Total Time Spent Total Time Spent (In Minutes): 40 Total Time Includes: Examination of the Patient, Discharge Planning, Medication Reconciliation and Communication With Other Providers Discharge Plan Discharge Items Patient Disposition: Home - Self-Care Reason For Visit: POSSIBLE "TIA" Discharge Diagnosis: possible TIA Discharge Goals: Prevent disease and Therapeutic intervention Activity: Resume your previous activity Non-emergency contact: Primary Care Provider Call non-emergency contact if: you have any medication questions and your symptoms worsen Follow-up/Referrals: DAFNE HENDERSON [Other] (see Dr Henderosn within 48 hours ) Diet: Regular Addtl Provider Instructions: From Zoran Gallagher, Hospitalist: You were admitted due to balance issues and difficulties with your vision. You underwent a very large stroke work-up and fortunately your MRI of the brain did NOT show a stroke. Your heart monitoring, blood work, and echocardiogram were all normal. We would categorize your symptoms as a "TIA" - also known as transient ischemic attack. This is an event when you suffer neurological symptoms that come on and resolve typically within 24 hours. TIA is NOT the same thing as a stroke. TIAs do NOT leave you with permanent neurological damage/deficits. However, TIA IS a risk factor for a future stroke. 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 This may have contributed to your symptoms through something called vertebral- basilar insufficiency (this is the blood circulation at the base of the brain). You were seen by neurology who has recommended-- 1. start plavix (clopidogrel) 75mg once a day every day indefinitely. 2. continue your baby aspirin 81mg once a day for THREE MORE WEEKS then STOP the aspirin. 3. continue your usual blood pressure medications and your cholesterol medication. 4. follow-up with a neurologist back home in [place]; be sure to bring the CD with your films to that appointment. 5. avoid dehydration states; be sure to hydrate well on a daily basis. Follow-up -- see your family doctor within 48 hours of return to [place]. Please ask for a neurology referral at that time. Since you are traveling a long distance from [place] to [place] please stop every 1-2 hours to stretch and take a short walk to prevent DVT blood clots in your legs. Additional TIA instructions -- Risk Factors for TIA and Stroke: You can reduce your chances of TIA and stroke by working with your medical provi veronica to adopt a healthy lifestyle. Some specific ways to lower your chance of stroke are: * If you are a smoker, now is the time to stop smoking cigarettes * If you are diabetic, improve the control of your blood sugars * Avoid excessive amounts of alcohol * Control high blood pressure * Lose weight if you are overweight * Be sure to lead an active lifestyle * Eat a healthy diet low in salt, cholesterol and fat You should know about other risk factors for stroke that you are unable to control. These include: * Age 55 years or older * Male gender * Certain racial groups: , or / * Family History of Stroke, Mini stroke or Heart Attack * Sickle Cell Disease Follow Up: It is important for you to keep your follow up appointments with your medical provider. Who to Call and When: Medical Emergencies: Call 911 immediately if you experience any of the following warning signs and symptoms of Stroke: * Sudden numbness or weakness of the face, arm or leg, especially on one side of the body * Sudden confusion, trouble speaking or understanding * Sudden trouble seeing in one or both eyes * Sudden trouble walking, dizziness, loss of balance or coordination * Sudden severe headache with no cause Do not delay calling 911 if you experience any warning signs or symptoms of a stroke. Delay in seeking medical attention may affect what treatments can be given to you. . Best wishes and safe travels, --Dr Gallagher Prescriptions: New clopidogrel [Plavix] 75 mg tablet 75 mg PO DAILY Qty: 30 RF: 2 Continued pravastatin 40 mg Tablet 40 mg PO QPM RF: 0 metoprolol succinate [Toprol XL] 50 mg Tablet Extended Release 24 Hr 50 mg PO QPM RF: 0 aspirin 81 mg Tablet,Delayed Release (Dr/Ec) 81 mg PO QPM RF: 0 lisinopril 40 mg Tablet 40 mg PO QAM RF: 0 Stand-Alone Forms: Medications to Prevent Stroke, [facility]/Other Patient Handouts: TIA Discharge Orders: Discharge Order (Routine); Ordered 03/03/19 Ordered By: Zoran Gallagher Admission Data Admit Date/Time: 03/01/19 19:53 Attending Provider: Zoran Gallagher Admit Provider: Clayton Nuñez Primary Care Provider: Dafne Henderson Other Providers: Robin Salazar Robert R. Service: Telemetry Other Interventions: Discharge Summary Assessment (RN) Last Done: 03/03/19 13:37 DC Date/Time DO NOT enter until pt leaves facility: 03/03/19 14:08
== END 2019-03-03 14:08 | disposition home or self-care (01) | DRG 69 ==
LOC: ED 16:23 → 2S 19:53 → SUATTDRO 19:53 → 2S 20:18